=== PATIENT | male | born 1965 | race Caucasian/White ===

== ENCOUNTER 2018-06-22 00:17 | Inpatient (IN) | payer MEDICAID ==
[~2018-06-22] VITALS: Ht 167.6 cm; Wt 63.5 kg
[2018-06-22] MEDS ORDERED: ONDANSETRON HCL 4MG/2ML INJ IV STA (01:19)
[2018-06-22] MEDS ORDERED: PIPERACILLIN/TAZ 3.375G PREMIX 50 ML IV ONE (01:30)
[2018-06-22] MEDS ORDERED: VANCOMYCIN 1 G PREMIX 200 ML IV ONE (01:30)
[2018-06-22 02:21] LABS: CHLORIDE 97 mEq/L (98-107)
[2018-06-22 02:59] LABS: HEMATOCRIT. 23.3 % (42.0-52.0); HEMOGLOBIN. 7.9 g/dL (14.0-18.0); MEAN CORPUSCULAR HEMOGLOBIN 30.1 pg (28.0-32.0); MEAN CORPUSCULAR VOLUME 89.1 fL (80.0-94.0); MEAN PLATELET VOLUME 7.3 fl (7.4-10.4); PLATELET 443 x1000/uL (130-400); RED BLOOD CELL COUNT 2.62 mill/uL (4.7-6.1); RED CELL DISTRIBUTION WIDTH 14.8 % (11.6-14.6)
[2018-06-22 03:05] LABS: INR 1.1; PROTHROMBIN TIME 11.4 sec (9.1-11.1)
[2018-06-22 03:34] LABS: PLATELET ESTIMATE NORMAL
[2018-06-22] MEDS ORDERED: IPRATROPIUM/ALBUTEROL 0.5-3(2.5)MG/3ML NEB HHN PRN (09:15)
[2018-06-22] MEDS ORDERED: DEXTROSE 50% WATER 50ML SYRINGE IV PRN (09:15)
[2018-06-22] MEDS ORDERED: ONDANSETRON HCL 4MG/2ML INJ IV PRN (09:15)
[2018-06-22] MEDS ORDERED: PIPERACILLIN/TAZ 3.375G PREMIX 50 ML IV SCH (11:45)
[2018-06-22] MEDS: ACETAMINOPHEN 325MG TABLET PO PRN (12:23)
[2018-06-22] MEDS: BLOOD SUGAR DIAGNOSTIC STRIP TEST SCH ×3 (13:00→21:16)
[2018-06-22] MEDS: INSULIN LISPRO 100 UNITS/ML SUBCUT SCH ×3 (13:20→21:00)
[2018-06-22 17:00] VITALS: BP 109/61
[2018-06-22 19:45] LABS: CREATINE KINASE 23 IU/L (39-308); LDL CHOLESTEROL 42 mg/dL (5-100)
[2018-06-22 19:50] LABS: CREATINE KINASE MB FRACTION < 1.0 ng/mL (0.5-3.6); HDL CHOLESTEROL 21 mg/dL (40-59)
[2018-06-22 19:55] VITALS: BP 123/66
[2018-06-22 20:00] VITALS: BP 123/66
[2018-06-22] MEDS: PIPERACILLIN/TAZ 2.25G PREMIX 50 ML IV SCH (21:22)
[2018-06-23] VITALS (8 sets, daily range): BP systolic 122–159; BP diastolic 64–87
[2018-06-23] MEDS: EPOETIN ALFA 10000UNITS/ML VIAL SUBCUT SCH (02:49)
[2018-06-23] MEDS: PIPERACILLIN/TAZ 2.25G PREMIX 50 ML IV SCH ×4 (02:49→23:32)
[2018-06-23] MEDS ORDERED: VANCOMYCIN 500 MG PREMIX 100 ML IV SCH (05:00)
[2018-06-23] MEDS: BLOOD SUGAR DIAGNOSTIC STRIP TEST SCH ×5 (06:03→20:45)
[2018-06-23 07:24] LABS: BASOPHILS % 1.4 % (0.0-2.0); EOSINOPHILS % 2.8 % (0.0-5.0); HEMATOCRIT. 23.1 % (42.0-52.0); HEMOGLOBIN. 7.8 g/dL (14.0-18.0); LYMPHOCYTES % 14.5 % (20.0-50.0); MEAN CORPUSCULAR HEMOGLOBIN 30.1 pg (28.0-32.0); MEAN CORPUSCULAR VOLUME 89.4 fL (80.0-94.0); MEAN PLATELET VOLUME 7.2 fl (7.4-10.4); MONOCYTES % 9.3 % (2.0-8.0); PLATELET 409 x1000/uL (130-400); RED BLOOD CELL COUNT 2.58 mill/uL (4.7-6.1); RED CELL DISTRIBUTION WIDTH 14.4 % (11.6-14.6)
[2018-06-23] MEDS: INSULIN LISPRO 100 UNITS/ML SUBCUT SCH ×5 (07:27→20:45)
[2018-06-23] MEDS: ACETAMINOPHEN 325MG TABLET PO PRN (08:11)
[2018-06-23] MEDS: MORPHINE SULFATE 4 MG/ML CPJ (NOT FOR IM USE) IV PRN (15:43)
[2018-06-23 20:22] LABS: T4 FREE 1.48 ng/dL (0.76-1.46)
[2018-06-24] VITALS (8 sets, daily range): BP systolic 118–142; BP diastolic 60–80
[2018-06-24] MEDS: HYDROCODONE/ACETAMINOPHEN 5/325MG TABLET PO PRN (06:00)
[2018-06-24] MEDS: BLOOD SUGAR DIAGNOSTIC STRIP TEST SCH ×4 (06:18→21:00)
[2018-06-24 07:26] LABS: BASOPHILS % 1.4 % (0.0-2.0); EOSINOPHILS % 2.5 % (0.0-5.0); HEMATOCRIT. 23.5 % (42.0-52.0); HEMOGLOBIN. 7.8 g/dL (14.0-18.0); LYMPHOCYTES % 19.5 % (20.0-50.0); MEAN CORPUSCULAR HEMOGLOBIN 29.6 pg (28.0-32.0); MEAN CORPUSCULAR VOLUME 89.4 fL (80.0-94.0); MEAN PLATELET VOLUME 7.3 fl (7.4-10.4); MONOCYTES % 8.2 % (2.0-8.0); NEUTROPHILS % 68.4 % (40.0-76.0); PLATELET 426 x1000/uL (130-400); RED BLOOD CELL COUNT 2.63 mill/uL (4.7-6.1); RED CELL DISTRIBUTION WIDTH 14.7 % (11.6-14.6)
[2018-06-24] MEDS: INSULIN LISPRO 100 UNITS/ML SUBCUT SCH ×4 (07:50→21:00)
[2018-06-24] MEDS: MORPHINE SULFATE 4 MG/ML CPJ (NOT FOR IM USE) IV PRN ×2 (08:51→18:26)
[2018-06-24] MEDS: PIPERACILLIN/TAZ 2.25G PREMIX 50 ML IV SCH ×2 (08:51→15:26)
[2018-06-24 10:01] LABS: PHOSPHORUS 4.2 mg/dL (2.5-4.9)
[2018-06-24] MEDS: EPOETIN ALFA 10000UNITS/ML VIAL SUBCUT SCH (22:30)
[2018-06-25] VITALS: BP 140/77
[2018-06-25] MEDS: PIPERACILLIN/TAZ 2.25G PREMIX 50 ML IV SCH ×3 (00:20→15:40)
[2018-06-25 04:00] VITALS: BP 142/78
[2018-06-25] MEDS: MORPHINE SULFATE 4 MG/ML CPJ (NOT FOR IM USE) IV PRN (04:25)
[2018-06-25] MEDS: HYDROCODONE/ACETAMINOPHEN 5/325MG TABLET PO PRN (06:08)
[2018-06-25] MEDS: BLOOD SUGAR DIAGNOSTIC STRIP TEST SCH ×4 (06:33→21:00)
[2018-06-25 07:10] LABS: BASOPHILS % 1.4 % (0.0-2.0); EOSINOPHILS % 2.7 % (0.0-5.0); HEMATOCRIT. 25.8 % (42.0-52.0); HEMOGLOBIN. 8.8 g/dL (14.0-18.0); LYMPHOCYTES % 16.6 % (20.0-50.0); MEAN CORPUSCULAR HEMOGLOBIN 30.1 pg (28.0-32.0); MEAN CORPUSCULAR VOLUME 88.6 fL (80.0-94.0); MEAN PLATELET VOLUME 7.1 fl (7.4-10.4); MONOCYTES % 7.5 % (2.0-8.0); NEUTROPHILS % 71.8 % (40.0-76.0); PLATELET 449 x1000/uL (130-400); RED BLOOD CELL COUNT 2.91 mill/uL (4.7-6.1); RED CELL DISTRIBUTION WIDTH 14.4 % (11.6-14.6)
[2018-06-25 08:00] VITALS: BP 140/74
[2018-06-25 12:00] VITALS: BP 129/68
[2018-06-25] MEDS: INSULIN LISPRO 100 UNITS/ML SUBCUT SCH ×3 (13:08→21:37)
[2018-06-25 16:00] VITALS: BP 143/77
[2018-06-25 20:00] VITALS: BP 142/78
[2018-06-26] VITALS: BP 150/83
[2018-06-26] MEDS: PIPERACILLIN/TAZ 2.25G PREMIX 50 ML IV SCH ×2 (00:03→09:38)
[2018-06-26 04:14] VITALS: BP 143/77
[2018-06-26] MEDS: MORPHINE SULFATE 4 MG/ML CPJ (NOT FOR IM USE) IV PRN ×2 (04:34→09:53)
[2018-06-26] MEDS ORDERED: VANCOMYCIN 750 MG PREMIX 150 ML IV NR (06:00)
[2018-06-26 07:10] LABS: BASOPHILS % 1.5 % (0.0-2.0); EOSINOPHILS % 2.3 % (0.0-5.0); HEMATOCRIT. 26.2 % (42.0-52.0); HEMOGLOBIN. 8.8 g/dL (14.0-18.0); LYMPHOCYTES % 19.7 % (20.0-50.0); MEAN CORPUSCULAR HEMOGLOBIN 29.8 pg (28.0-32.0); MEAN CORPUSCULAR VOLUME 88.9 fL (80.0-94.0); MEAN PLATELET VOLUME 7.2 fl (7.4-10.4); NEUTROPHILS % 68.5 % (40.0-76.0); PLATELET 440 x1000/uL (130-400); RED BLOOD CELL COUNT 2.95 mill/uL (4.7-6.1); RED CELL DISTRIBUTION WIDTH 14.6 % (11.6-14.6)
[2018-06-26] MEDS: BLOOD SUGAR DIAGNOSTIC STRIP TEST SCH ×4 (07:20→21:00)
[2018-06-26 07:45] LABS: PHOSPHORUS 6.9 mg/dL (2.5-4.9)
[2018-06-26] MEDS: INSULIN LISPRO 100 UNITS/ML SUBCUT SCH ×4 (07:50→21:00)
[2018-06-26 08:47] VITALS: BP 143/72
[2018-06-26 12:41] VITALS: BP 140/73
[2018-06-26] MEDS ORDERED: CEFTRIAXONE 2 G PREMIX 50 ML IV SCH (15:15)
[2018-06-26 16:47] VITALS: BP 117/69
[2018-06-26] MEDS ORDERED: CEFTRIAXONE 2 G in DEXTROSE 5% WATER 50 ML IV SCH ×2 (17:00→20:00)
[2018-06-26] MEDS: CALCIUM ACETATE 667MG CAPSULE PO SCH (17:50)
[2018-06-26 19:44] VITALS: BP 151/83
[2018-06-26] MEDS: HYDROCODONE/ACETAMINOPHEN 5/325MG TABLET PO PRN (22:45)
[2018-06-27] VITALS: BP 153/73
[2018-06-27 04:00] VITALS: BP 150/78
[2018-06-27 07:21] LABS: BASOPHILS % 1.4 % (0.0-2.0); EOSINOPHILS % 2.2 % (0.0-5.0); HEMATOCRIT. 26.9 % (42.0-52.0); HEMOGLOBIN. 8.9 g/dL (14.0-18.0); LYMPHOCYTES % 19.7 % (20.0-50.0); MEAN CORPUSCULAR HEMOGLOBIN 29.5 pg (28.0-32.0); MEAN CORPUSCULAR VOLUME 89.2 fL (80.0-94.0); MEAN PLATELET VOLUME 7.1 fl (7.4-10.4); MONOCYTES % 9.3 % (2.0-8.0); NEUTROPHILS % 67.4 % (40.0-76.0); PLATELET 445 x1000/uL (130-400); RED BLOOD CELL COUNT 3.02 mill/uL (4.7-6.1); RED CELL DISTRIBUTION WIDTH 15.2 % (11.6-14.6)
[2018-06-27] MEDS: INSULIN LISPRO 100 UNITS/ML SUBCUT SCH ×4 (07:50→21:01)
[2018-06-27 08:11] VITALS: BP 149/79
[2018-06-27 08:56] LABS: PHOSPHORUS 5.6 mg/dL (2.5-4.9)
[2018-06-27] MEDS: CALCIUM ACETATE 667MG CAPSULE PO SCH ×3 (10:23→18:41)
[2018-06-27] MEDS: MORPHINE SULFATE 4 MG/ML CPJ (NOT FOR IM USE) IV PRN ×2 (11:06→20:11)
[2018-06-27] MEDS ORDERED: CALC667C PO (11:41)
[2018-06-27 11:50] VITALS: BP 149/77
[2018-06-27] MEDS: BLOOD SUGAR DIAGNOSTIC STRIP TEST SCH ×4 (12:20→20:26)
[2018-06-27 15:51] VITALS: BP 145/71
[2018-06-27 20:20] VITALS: BP 155/78
[2018-06-27] MEDS: EPOETIN ALFA 10000UNITS/ML VIAL SUBCUT SCH (21:55)
[2018-06-28] VITALS: BP 156/79
[2018-06-28] MEDS: MORPHINE SULFATE 4 MG/ML CPJ (NOT FOR IM USE) IV PRN ×2 (00:50→08:20)
[2018-06-28 04:00] VITALS: BP 144/74
[2018-06-28] MEDS: BLOOD SUGAR DIAGNOSTIC STRIP TEST SCH ×4 (06:47→21:00)
[2018-06-28] MEDS: INSULIN LISPRO 100 UNITS/ML SUBCUT SCH ×4 (07:11→22:08)
[2018-06-28 07:50] LABS: BASOPHILS % 1.8 % (0.0-2.0); HEMATOCRIT. 25.8 % (42.0-52.0); HEMOGLOBIN. 8.6 g/dL (14.0-18.0); LYMPHOCYTES % 21.4 % (20.0-50.0); MEAN CORPUSCULAR HEMOGLOBIN 29.7 pg (28.0-32.0); MEAN CORPUSCULAR VOLUME 89.1 fL (80.0-94.0); MEAN PLATELET VOLUME 7.2 fl (7.4-10.4); MONOCYTES % 9.1 % (2.0-8.0); NEUTROPHILS % 65.7 % (40.0-76.0); PLATELET 438 x1000/uL (130-400); RED BLOOD CELL COUNT 2.89 mill/uL (4.7-6.1); RED CELL DISTRIBUTION WIDTH 15.3 % (11.6-14.6)
[2018-06-28 08:16] VITALS: BP 156/78
[2018-06-28] MEDS: CALCIUM ACETATE 667MG CAPSULE PO SCH ×3 (08:18→16:56)
[2018-06-28 08:28] LABS: PHOSPHORUS 6.7 mg/dL (2.5-4.9)
[2018-06-28] MEDS ORDERED: LEVO500T2 PO (11:27)
[2018-06-28 12:12] VITALS: BP 144/74
[2018-06-28 16:30] VITALS: BP 160/86
[2018-06-28] MEDS ORDERED: HEPARIN SODIUM 1,000 UNIT/1ML VIAL IV NR (16:40)
[2018-06-28] MEDS: CLONIDINE 0.1MG TABLET PO SCH ×2 (16:59→21:07)
[2018-06-28] MEDS: HYDROCODONE/ACETAMINOPHEN 5/325MG TABLET PO PRN ×2 (18:02→22:06)
[2018-06-28] MEDS: ACETAMINOPHEN 325MG TABLET PO PRN (18:03)
[2018-06-28 20:00] VITALS: BP 165/78
[2018-06-29] VITALS: BP 140/75
[2018-06-29 03:54] VITALS: BP 147/74
[2018-06-29] MEDS: CLONIDINE 0.1MG TABLET PO SCH ×4 (05:00→13:18)
[2018-06-29] MEDS: BLOOD SUGAR DIAGNOSTIC STRIP TEST SCH ×2 (07:20→11:55)
[2018-06-29] MEDS: INSULIN LISPRO 100 UNITS/ML SUBCUT SCH ×2 (07:29→11:59)
[2018-06-29 08:04] VITALS: BP 158/78
[2018-06-29] MEDS: CALCIUM ACETATE 667MG CAPSULE PO SCH ×2 (08:24→11:59)
[2018-06-29 11:31] VITALS: BP 162/78
[2018-06-30] MEDS ORDERED: LEVOFLOXACIN 500MG TABLET PO SCH (09:00)
== END 2018-06-29 14:52 | disposition home health service (06) | DRG 720 ==
LOC: ER 00:40 → 6WST 05:33 → EDBEDREQTM 05:35 → EDBEDREQ 05:35 → EDBEDREQSVC 05:35 → ENRESERV 16:02 → CANBEDREQ 16:07
PROVIDERS: ADMIT Internal Medicine; ATTEND Internal Medicine
PROC: 5A1D70Z Performance of Urinary Filtration, Intermittent, Less than 6 Hours Per Day (ICD-10-PCS; principal; 2018-06-22)
PROC: 5A1D70Z Performance of Urinary Filtration, Intermittent, Less than 6 Hours Per Day (ICD-10-PCS; 2018-06-24)
PROC: 5A1D70Z Performance of Urinary Filtration, Intermittent, Less than 6 Hours Per Day (ICD-10-PCS; 2018-06-26)
PROC: 5A1D70Z Performance of Urinary Filtration, Intermittent, Less than 6 Hours Per Day (ICD-10-PCS; 2018-06-28)
DX: A41.9 Sepsis, unspecified organism (principal); J96.91 Respiratory failure, unspecified with hypoxia; E43 Unspecified severe protein-calorie malnutrition; J81.1 Chronic pulmonary edema; E87.2 Acidosis; I24.8 Other forms of acute ischemic heart disease; J18.9 Pneumonia, unspecified organism; E11.22 Type 2 diabetes mellitus with diabetic chronic kidney disease; E11.621 Type 2 diabetes mellitus with foot ulcer; N18.6 End stage renal disease; D63.8 Anemia in other chronic diseases classified elsewhere; I27.20 Pulmonary hypertension, unspecified; J45.909 Unspecified asthma, uncomplicated; E11.69 Type 2 diabetes mellitus with other specified complication; M86.8X7 Other osteomyelitis, ankle and foot; E87.8 Other disorders of electrolyte and fluid balance, not elsewhere classified; E11.51 Type 2 diabetes mellitus with diabetic peripheral angiopathy without gangrene; L97.429 Non-pressure chronic ulcer of left heel and midfoot with unspecified severity; N25.81 Secondary hyperparathyroidism of renal origin; E11.40 Type 2 diabetes mellitus with diabetic neuropathy, unspecified; R74.0 Nonspecific elevation of levels of transaminase and lactic acid dehydrogenase [LDH]; I12.0 Hypertensive chronic kidney disease with stage 5 chronic kidney disease or end stage renal disease; Z82.49 Family history of ischemic heart disease and other diseases of the circulatory system; Z83.3 Family history of diabetes mellitus; Z68.22 Body mass index [BMI] 22.0-22.9, adult; Z99.2 Dependence on renal dialysis; Z89.431 Acquired absence of right foot
CPT/HCPCS: 36415; 71045; 73650; 73721; 80048; 80061; 80202; 82550; 82553; 82962; 83605; 83735; 83880; 84100; 84145; 84439; 84443; 84481; 84484; 87070; 87077; 87186; 93005; 93306; 93923; 93970; 96365; 96375; 97162; 99285; C1893; J0696; J0885; J1644; J1815; J2270; J2405; J2543; J3370; J7030; J7050; J7060